=== PATIENT | male | born 1970 | race Caucasian/White ===

== ENCOUNTER 2022-08-03 17:49 | Emergency (ER) | payer BC ==
[~2022-08-03] VITALS: Ht 182.9 cm; Wt 88.6 kg
[2022-08-03 17:50] VITALS: BP 114/53
[2022-08-03] MEDS ORDERED: NORCO, ANEXSIA 5/325MG TABLET (HYDROcodone/ACETAMINOPHEN) PO ONE (20:50)
== END 2022-08-03 21:10 | disposition home or self-care (01) ==
LOC: M ED 17:49
DX: S83.91XA Sprain of unspecified site of right knee, initial encounter (principal); M25.461 Effusion, right knee; X50.1XXA Overexertion from prolonged static or awkward postures, initial encounter